=== PATIENT | female | born 1995 | race Caucasian/White ===

== ENCOUNTER 2019-01-22 20:58 | Emergency (ER) | payer OTHER ==
[~2019-01-22] VITALS: Ht 172.7 cm; Wt 77.1 kg
[2019-01-22 21:00] VITALS: BP_SYST 141
--- NOTE | 2019-01-22 21:06 | NUR ---
Patient to ER bed 8 to gown for evaluation. Side rails up. Report given to LITA CHANG.
--- NOTE | 2019-01-22 21:10 | NUR ---
Patient to ER via triage for evaluation of left index finger pain after having a bee sting, earlierr this evening. Patient is awake, alert and oriented in no acute distress, vital signs stable, respirations even and unlabored, skin warm and dry to touch. No s/s of respiratory distress noted. Patient able to ambulate without difficulty with slow, steady gait to bed 8 with family at her side. Awaiting evaluation by ER MD, will continue to observe and assess.
[2019-01-22] MEDS ORDERED: DIPHENHYDRAMINE HCL 50 MG CAPSULE PO ONE (21:15)
[2019-01-22] MEDS ORDERED: PREDNISONE 20 MG TABLET PO ONE (21:15)
--- NOTE | 2019-01-22 21:16 | NUR ---
NBA Dow at bedside examining patient.
--- NOTE | 2019-01-22 21:35 | NUR ---
Patient given written and verbal discharge instructions and verbalizes understanding. ER MD discussed with patient the results and treatment provided. Patient in stable condition. ID arm band removed. Rx of Prednisone, Benadryl given. Patient educated on pain management and to follow up with PMD. Pain Scale 0. Opportunity for questions provided and answered. Medication side effect fact sheet provided. Patient left ER in no acute distress, able to ambulate without difficulty with slow, steady gait with family at her side. No adverse reaction noted to medication.
== END 2019-01-22 21:35 | disposition home or self-care (01) ==
LOC: SED 20:58
DX: T63.441A Toxic effect of venom of bees, accidental (unintentional), initial encounter (principal); Y92.89 Other specified places as the place of occurrence of the external cause
CPT/HCPCS: 99283; J7512; Q0163

== ENCOUNTER 2020-01-11 06:10 | Inpatient (IN) | payer OTHER, SELFPAY ==
[2020-01-09 16:23] LABS: BILIRUBIN,URINE NEGATIVE (NEGATIVE); BLOOD, URINE 2+ (NEGATIVE); CLARITY/URINE CLEAR (CLEAR); COLOR,URINE YELLOW (YELLOW); GLUCOSE,URINE NEGATIVE (NEGATIVE); KETONES,URINE NEGATIVE (NEGATIVE); LEUKOCYTE ESTERASE ,URINE NEGATIVE (NEGATIVE); NITRITE, URINE NEGATIVE (NEGATIVE); PH,URINE 6.5 (5.0-8.0); PROTEIN URINE NEGATIVE (NEGATIVE); UROBILINOGEN,URINE 0.2 (0.2-1.0)
[2020-01-09 16:26] LABS: BASOPHILS # (AUTO) 0.1 K/uL (0.0-0.2); BASOPHILS % (AUTO) 0.7 % (0.0-2.0); EOSINOPHILS # (AUTO) 0.1 K/uL (0.0-0.4); EOSINOPHILS % (AUTO) 1.8 % (0.0-4.0); HEMATOCRIT 41.1 % (36-48); HEMOGLOBIN 13.6 g/dL (12.0-16.0); LYMPHOCYTES # (AUTO) 1.8 K/uL (1.0-5.5); LYMPHOCYTES % (AUTO) 23.6 % (20.5-51.5); MEAN CORPUSCULAR HEMOGLOBIN 29 pg (27-31); MEAN CORPUSCULAR HGB CONC 33 % (32-36); MEAN CORPUSCULAR VOLUME 88 fL (79.0-98.0); MONOCYTES # (AUTO) 0.7 K/uL (0.0-1.0); MONOCYTES % (AUTO) 8.9 % (1.7-9.3); NEUTROPHILS # (AUTO) 5.1 K/uL (1.8-7.7); PLATELET COUNT (AUTO) 262 K/uL (130-430); RED BLOOD CELL COUNT(AUTO) 4.69 MIL/uL (4.2-6.2); RED CELL DISTRIBUTION WIDTH 14.4 % (9.0-15.0); WHITE BLOOD COUNT (AUTO) 7.8 K/uL (4.8-10.8)
[2020-01-09 16:49] LABS: BACTERIA,URINE FEW /HPF (None Seen); WBC,URINE 0-3 /HPF (0-3)
[~2020-01-11] VITALS: Ht 172.7 cm; Wt 102.1 kg
[2020-01-11] MEDS ORDERED: LR 1,000 ML IV ONE (06:28)
[2020-01-11] MEDS ORDERED: CEFAZOLIN 2 GM IVPB PREMIX 50 ML IV ONE (06:30)
[2020-01-11 06:59] VITALS: BP_SYST 134
[2020-01-11] MEDS ORDERED: MORPHINE SULFATE 10MG/10ML PF AMP EP ONE (07:20)
[2020-01-11] MEDS ORDERED: BUPIVACAINE /PF 0.25% 30 ML VIAL INJ ONE (07:20)
[2020-01-11] MEDS ORDERED: LR 1,000 ML IV.SOLN IV ONE (07:20)
[2020-01-11] MEDS ORDERED: OXYTOCIN 10 UNIT/ML VIAL IV ONE (07:20)
[2020-01-11] MEDS ORDERED: ONDANSETRON HCL 4 MG/2 ML VIAL IVP ONE (07:20)
[2020-01-11] MEDS ORDERED: LR 1,000 ML IV SCH ×2 (08:21→08:37)
[2020-01-11] MEDS ORDERED: HYDROmorphone 1 MG INJ. 1 MG/ML AMPUL IVP PRN (08:30)
[2020-01-11] MEDS ORDERED: METOCLOPRAMIDE HCL 10 MG/2 ML VIAL IVP PRN (08:30)
[2020-01-11] MEDS ORDERED: MORPHINE SULFATE 10MG/10ML PF AMP SP SCH (08:30)
[2020-01-11] MEDS ORDERED: MEPERIDINE HCL/PF 25 MG/ML DISP.SYRIN IVP PRN (08:30)
[2020-01-11] MEDS ORDERED: ONDANSETRON HCL 4 MG/2 ML VIAL IVP PRN ×2 (08:30)
[2020-01-11] MEDS ORDERED: DIPHENHYDRAMINE INJ 50 MG/ML VIAL IM PRN (08:30)
[2020-01-11] MEDS ORDERED: KETOROLAC TROMETHAMINE 30 MG VIAL IVP PRN (08:30)
[2020-01-11] MEDS ORDERED: KETOROLAC TROMETHAMINE 60 MG/2 ML VIAL IM PRN (08:30)
[2020-01-11] MEDS ORDERED: NALOXONE HCL 0.4 MG/ML AMP (NARCAN) IVP PRN (08:30)
[2020-01-11 08:35] VITALS: BP_SYST 121
[2020-01-11] MEDS ORDERED: DIPH-TET-PERTUS Vaccine 0.5 ML VIAL (ADACEL) I.M. PRN (08:45)
[2020-01-11] MEDS ORDERED: OXYCODONE/ACETAMINOPHEN *10*mg/325 mg TABLET PO PRN (08:45)
[2020-01-11] MEDS ORDERED: TEMAZEPAM 15 MG CAPSULE PO PRN (08:45)
[2020-01-11] MEDS ORDERED: RHO(D) IMMUNE GLOBULIN/MALTOSE 1500 UNITS/1.3 ML (WINHRO) IM PRN (08:45)
[2020-01-11] MEDS ORDERED: SENNOSIDES/DOCUSATE SODIUM 1 TAB TABLET(SENOKOT-S) PO PRN (08:45)
[2020-01-11] MEDS ORDERED: HYDROcodone/ACETAMIN 5-325 MG TAB (NORCO/ VICODIN) PO PRN (08:45)
[2020-01-11] MEDS ORDERED: LANOLIN 7 GM OINT. TP PRN (08:45)
[2020-01-11] MEDS ORDERED: MEASLES,MUMPS&RUBELLA VACC/PF 12500 UNIT/0.5 ML VIAL SUBQ PRN (08:45)
[2020-01-11] MEDS ORDERED: BISACODYL 10 MG/SUPPOSITORY RC PRN (08:45)
[2020-01-11] MEDS ORDERED: ANUSOL 1 EA SUPP.RECT (PREPARATION H) RC PRN (08:45)
[2020-01-11] MEDS ORDERED: METOCLOPRAMIDE HCL 10 MG/2 ML VIAL ONE ×2 (09:02→09:03)
[2020-01-11] MEDS ORDERED: OXYTOCIN/0.9 % SODIUM CHLORIDE 1,000 ML IV ONE (09:12)
[2020-01-11] MEDS: OXYTOCIN/0.9 % SODIUM CHLORIDE 1,000 ML IV SCH ×2 (09:45→17:59)
[2020-01-11] MEDS: KETOROLAC TROMETHAMINE 30 MG VIAL IVP SCH ×2 (12:08→17:58)
[2020-01-11] MEDS: CEFAZOLIN 1 GM IVPB PREMIX 50 ML IV SCH ×2 (12:08→17:58)
[2020-01-12] MEDS: CEFAZOLIN 1 GM IVPB PREMIX 50 ML IV SCH (00:35)
[2020-01-12] MEDS: KETOROLAC TROMETHAMINE 30 MG VIAL IVP SCH ×3 (06:00→11:59)
[2020-01-12 07:15] LABS: BASOPHILS % (AUTO) 0.2 % (0.0-2.0); EOSINOPHILS # (AUTO) 0.2 K/uL (0.0-0.4); EOSINOPHILS % (AUTO) 1.3 % (0.0-4.0); HEMATOCRIT 32.7 % (36-48); HEMOGLOBIN 11.2 g/dL (12.0-16.0); LYMPHOCYTES # (AUTO) 1.5 K/uL (1.0-5.5); LYMPHOCYTES % (AUTO) 11.1 % (20.5-51.5); MEAN CORPUSCULAR HEMOGLOBIN 30 pg (27-31); MEAN CORPUSCULAR HGB CONC 34 % (32-36); MEAN CORPUSCULAR VOLUME 87 fL (79.0-98.0); MONOCYTES % (AUTO) 7.9 % (1.7-9.3); NEUTROPHILS # (AUTO) 10.5 K/uL (1.8-7.7); NEUTROPHILS % (AUTO) 79.5 % (40.0-70.0); PLATELET COUNT (AUTO) 191 K/uL (130-430); RED BLOOD CELL COUNT(AUTO) 3.78 MIL/uL (4.2-6.2); RED CELL DISTRIBUTION WIDTH 14.2 % (9.0-15.0); WHITE BLOOD COUNT (AUTO) 13.2 K/uL (4.8-10.8)
[2020-01-12] MEDS: DOCUSATE SODIUM 100 MG CAPSULE PO PRN (10:06)
[2020-01-12] MEDS: SIMETHICONE 80 MG TAB.CHEW PO PRN ×3 (10:06→18:02)
[2020-01-12] MEDS: IBUPROFEN 600 MG TABLET PO SCH (18:02)
[2020-01-12] MEDS: OXYCODONE/ACETAMINOPHEN 5-325 TABLET PO PRN (22:49)
[2020-01-13] MEDS: IBUPROFEN 600 MG TABLET PO SCH ×2 (00:18→06:24)
[2020-01-13] MEDS: DOCUSATE SODIUM 100 MG CAPSULE PO PRN (00:18)
[2020-01-13] MEDS: SIMETHICONE 80 MG TAB.CHEW PO PRN ×2 (00:19→06:25)
[2020-01-13] MEDS: OXYCODONE/ACETAMINOPHEN 5-325 TABLET PO PRN (06:25)
== END 2020-01-13 10:00 | disposition home or self-care (01) | DRG 788 ==
LOC: SPU 06:10
PROVIDERS: ADMIT Specialist; ATTEND Specialist
PROC: 10D00Z1 Extraction of Products of Conception, Low, Open Approach (ICD-10-PCS; principal; 2020-01-11 07:30)
DX: O32.1XX0 Maternal care for breech presentation, not applicable or unspecified (principal); O34.03 Maternal care for unspecified congenital malformation of uterus, third trimester; O69.81X0 Labor and delivery complicated by cord around neck, without compression, not applicable or unspecified; O99.214 Obesity complicating childbirth; E66.9 Obesity, unspecified; Q51.3 Bicornate uterus; Z37.0 Single live birth; Z3A.39 39 weeks gestation of pregnancy
CPT/HCPCS: 36415; 81000-TC; 85025; 86886; 86900; 86901; 90715; 94760; J0690; J1200; J1885; J2274; J2405; J2590; J2765; J3490; J7120; U0003-CS

== ENCOUNTER 2021-10-03 12:30 | Inpatient (IN) | payer BC ==
[~2021-10-03] VITALS: Ht 172.7 cm; Wt 99.8 kg
[2021-10-10] MEDS ORDERED: CEFAZOLIN 2 GM IVPB PREMIX 50 ML IV ONE (06:00)
[2021-10-10] MEDS ORDERED: LR 1,000 ML IV ONE (06:00)
[2021-10-10] MEDS ORDERED: ONDANSETRON HCL 4 MG/2 ML VIAL IVP PRN (06:00)
[2021-10-10 06:24] VITALS: BP_SYST 122
[2021-10-10] MEDS ORDERED: FLU VACC QS2021-22(6MOS UP)/PF 0.5 ML/SYR SYRINGE I.M. PRN (06:30)
[2021-10-10] MEDS ORDERED: ONDANSETRON HCL 4 MG/2 ML VIAL ONE (06:33)
[2021-10-10] MEDS ORDERED: LR 1,000 ML IV SCH ×2 (06:45→08:30)
[2021-10-10] MEDS ORDERED: METHYLERGONOVINE MALEATE 0.2 MG/ML AMP ONE (08:11)
[2021-10-10] MEDS ORDERED: TEMAZEPAM 15 MG CAPSULE PO PRN (08:30)
[2021-10-10] MEDS ORDERED: HYDROcodone/ACETAMIN 5-325 MG TAB (NORCO/ VICODIN) PO PRN (08:30)
[2021-10-10] MEDS ORDERED: RHO(D) IMMUNE GLOBULIN/MALTOSE 1500 UNITS/1.3 ML (WINHRO) IM PRN (08:30)
[2021-10-10] MEDS ORDERED: ANUSOL 1 EA SUPP.RECT (PREPARATION H) RC PRN (08:30)
[2021-10-10] MEDS ORDERED: DIPH-TET-PERTUS Vaccine 0.5 ML VIAL (ADACEL) I.M. PRN (08:30)
[2021-10-10] MEDS ORDERED: NALOXONE HCL 0.4 MG/ML AMP (NARCAN) IVP PRN (08:30)
[2021-10-10] MEDS ORDERED: LANOLIN 7 GM OINT. TP PRN (08:30)
[2021-10-10] MEDS ORDERED: BISACODYL 10 MG/SUPPOSITORY RC PRN (08:30)
[2021-10-10] MEDS ORDERED: OXYCODONE/ACETAMINOPHEN *10*mg/325 mg TABLET PO PRN (08:30)
[2021-10-10] MEDS ORDERED: MEASLES,MUMPS&RUBELLA VACC/PF 12500 UNIT/0.5 ML VIAL SUBQ PRN (08:30)
[2021-10-10 08:41] VITALS: BP_SYST 121
[2021-10-10] MEDS ORDERED: DIPHENHYDRAMINE INJ 50 MG/ML VIAL IVP PRN (12:30)
[2021-10-10] MEDS: OXYTOCIN/0.9 % SODIUM CHLORIDE 1,000 ML IV SCH ×2 (15:32→23:27)
[2021-10-10] MEDS: KETOROLAC TROMETHAMINE 30 MG VIAL IVP SCH ×2 (17:44→23:51)
[2021-10-10] MEDS: CEFAZOLIN 1 GM IVPB PREMIX 50 ML IV SCH ×2 (17:44→23:47)
[2021-10-10] MEDS ORDERED: SENNOSIDES/DOCUSATE SODIUM 1 TAB TABLET(SENOKOT-S) PO SCH (21:00)
[2021-10-10] MEDS: SIMETHICONE 80 MG TAB.CHEW PO PRN (21:44)
[2021-10-11] MEDS: KETOROLAC TROMETHAMINE 30 MG VIAL IVP SCH ×2 (05:47→11:39)
[2021-10-11 07:15] LABS: BASOPHILS % (AUTO) 0.3 % (0.0-2.0); EOSINOPHILS # (AUTO) 0.1 K/uL (0.0-0.4); EOSINOPHILS % (AUTO) 0.9 % (0.0-4.0); HEMATOCRIT 29.4 % (36-48); HEMOGLOBIN 9.7 g/dL (12.0-16.0); LYMPHOCYTES # (AUTO) 2.8 K/uL (1.0-5.5); LYMPHOCYTES % (AUTO) 22.9 % (20.5-51.5); MEAN CORPUSCULAR HEMOGLOBIN 26 pg (27-31); MEAN CORPUSCULAR HGB CONC 33 % (32-36); MEAN CORPUSCULAR VOLUME 79 fL (79.0-98.0); MONOCYTES # (AUTO) 1.2 K/uL (0.0-1.0); MONOCYTES % (AUTO) 9.8 % (1.7-9.3); NEUTROPHILS # (AUTO) 8.1 K/uL (1.8-7.7); NEUTROPHILS % (AUTO) 66.1 % (40.0-70.0); PLATELET COUNT (AUTO) 224 K/uL (130-430); RED BLOOD CELL COUNT(AUTO) 3.75 MIL/uL (4.2-6.2); RED CELL DISTRIBUTION WIDTH 15.7 % (9.0-15.0); WHITE BLOOD COUNT (AUTO) 12.3 K/uL (4.8-10.8)
[2021-10-11] MEDS ORDERED: fentaNYL CITRATE 250 MCG/5 ML AMP ONE (08:45)
[2021-10-11] MEDS ORDERED: DEXAMETHASONE SOD PHOSPHATE 4 MG/ML VIAL ONE (08:45)
[2021-10-11] MEDS ORDERED: MORPHINE SULFATE 10 MG/ML VIAL ONE (08:45)
[2021-10-11] MEDS ORDERED: LR 1,000 ML IV.SOLN IV ONE (08:45)
[2021-10-11] MEDS ORDERED: ePHEDrine sulfate 50 MG/ML VIAL ONE (08:45)
[2021-10-11] MEDS ORDERED: ONDANSETRON HCL 4 MG/2 ML VIAL ONE (08:45)
[2021-10-11] MEDS ORDERED: NS IRRIG SOLN 1000 ML IR ONE (08:45)
[2021-10-11] MEDS ORDERED: PHENYLEPHRINE HCL 10 MG/ML VIAL (NEOSYNEPHRINE) ONE (08:45)
[2021-10-11] MEDS: DOCUSATE SODIUM 100 MG CAPSULE PO SCH ×2 (10:29→21:29)
[2021-10-11] MEDS: OXYCODONE/ACETAMINOPHEN 5-325 TABLET PO PRN ×3 (10:30→21:30)
[2021-10-11] MEDS: SIMETHICONE 80 MG TAB.CHEW PO PRN ×2 (12:14→17:53)
[2021-10-11] MEDS: IBUPROFEN 600 MG TABLET PO SCH ×2 (12:15→17:53)
[2021-10-12] MEDS: IBUPROFEN 600 MG TABLET PO SCH ×3 (00:11→12:16)
[2021-10-12] MEDS: SIMETHICONE 80 MG TAB.CHEW PO PRN (05:50)
[2021-10-12] MEDS: OXYCODONE/ACETAMINOPHEN 5-325 TABLET PO PRN ×3 (05:55→13:21)
[2021-10-12] MEDS: DOCUSATE SODIUM 100 MG CAPSULE PO SCH (09:39)
== END 2021-10-12 14:10 | disposition home or self-care (01) | DRG 788 ==
LOC: SPU 10-10 05:45
PROVIDERS: ADMIT Specialist; ATTEND Specialist
PROC: 10D00Z1 Extraction of Products of Conception, Low, Open Approach (ICD-10-PCS; principal; 2021-10-10 07:31)
DX: O34.211 Maternal care for low transverse scar from previous cesarean delivery (principal); O69.1XX0 Labor and delivery complicated by cord around neck, with compression, not applicable or unspecified; O62.0 Primary inadequate contractions; Z3A.40 40 weeks gestation of pregnancy; Z37.0 Single live birth; Z91.048 Other nonmedicinal substance allergy status
CPT/HCPCS: 36415; 85025; 94760; J0690; J1100; J1200; J1885; J2210; J2270; J2370; J2405; J2590; J3010; J7120

== ENCOUNTER 2021-10-09 00:40 | Observation (INO) | payer BC, SELFPAY ==
[~2021-10-09] VITALS: Ht 172.7 cm; Wt 99.8 kg
[2021-10-09 03:32] LABS: BASOPHILS % (AUTO) 0.5 % (0.0-2.0); EOSINOPHILS # (AUTO) 0.1 K/uL (0.0-0.4); EOSINOPHILS % (AUTO) 1.2 % (0.0-4.0); HEMATOCRIT 33.3 % (36-48); HEMOGLOBIN 11.1 g/dL (12.0-16.0); LYMPHOCYTES # (AUTO) 2.4 K/uL (1.0-5.5); LYMPHOCYTES % (AUTO) 30.5 % (20.5-51.5); MEAN CORPUSCULAR HEMOGLOBIN 26 pg (27-31); MEAN CORPUSCULAR HGB CONC 33 % (32-36); MEAN CORPUSCULAR VOLUME 78 fL (79.0-98.0); MONOCYTES # (AUTO) 0.6 K/uL (0.0-1.0); MONOCYTES % (AUTO) 7.7 % (1.7-9.3); NEUTROPHILS # (AUTO) 4.6 K/uL (1.8-7.7); NEUTROPHILS % (AUTO) 60.1 % (40.0-70.0); PLATELET COUNT (AUTO) 271 K/uL (130-430); RED BLOOD CELL COUNT(AUTO) 4.25 MIL/uL (4.2-6.2); RED CELL DISTRIBUTION WIDTH 15.3 % (9.0-15.0); WHITE BLOOD COUNT (AUTO) 7.7 K/uL (4.8-10.8)
[2021-10-09 03:35] LABS: BILIRUBIN,URINE NEGATIVE (NEGATIVE); BLOOD, URINE NEGATIVE (NEGATIVE); CLARITY/URINE CLEAR (CLEAR); COLOR,URINE YELLOW (YELLOW); GLUCOSE,URINE NEGATIVE (NEGATIVE); KETONES,URINE NEGATIVE (NEGATIVE); LEUKOCYTE ESTERASE ,URINE NEGATIVE (NEGATIVE); NITRITE, URINE NEGATIVE (NEGATIVE); PROTEIN URINE NEGATIVE (NEGATIVE); UROBILINOGEN,URINE 0.2 (0.2-1.0)
== END 2021-10-09 04:00 | disposition home or self-care (01) ==
LOC: SPU 00:40
PROVIDERS: ADMIT Specialist; ATTEND Specialist
DX: O42.92 Full-term premature rupture of membranes, unspecified as to length of time between rupture and onset of labor (principal); Z20.822 Contact with and (suspected) exposure to COVID-19; Z3A.39 39 weeks gestation of pregnancy
CPT/HCPCS: 36415; 76815; 81002; 81003; 85025; 86592; 86886; 86900; 86901; 87426; G0378; G0379